=== PATIENT | male | born 1980 | race Caucasian/White ===

== ENCOUNTER 2020-01-26 13:30 | Emergency (ER) | payer BC ==
[~2020-01-26] VITALS: Ht 175.3 cm; Wt 81.6 kg
[2020-01-26 13:42] VITALS: BP 131/78
[2020-01-26] MEDS ORDERED: KETOROLAC TROMETHAMINE 15 MG/ML VIAL ONE (14:15)
--- NOTE | 2020-01-26 14:28 | NUR ---
PATIENT A/OX4, AMBULATORY WITH STEADY GAIT, BREATHING EVENA ND UNLABORED, NO SOB NOTED. Patient discharged to home in stable condition. Written and verbal after care instructions given. Patient verbalizes understanding of instruction.
[2020-01-26] MEDS ORDERED: KETOROLAC TROMETHAMINE INJ 30 MG/ML VIAL IM ONE (14:30)
== END 2020-01-26 14:30 | disposition home or self-care (01) ==
LOC: ER 13:30
DX: R50.9 Fever, unspecified (principal); R51.9 Headache, unspecified; Z20.828 Contact with and (suspected) exposure to other viral communicable diseases
CPT/HCPCS: J1885

== ENCOUNTER 2020-03-07 21:34 | Emergency (ER) | payer BC ==
[~2020-03-07] VITALS: Ht 175.3 cm; Wt 81.6 kg
--- NOTE | 2020-03-07 21:58 | NUR ---
PT CAME TO THE ER C/O MIDSTERNAL PRESSURE-LIKE CHEST PAIN SINCE 2099 TODAY +SOB +NAUSEA. PT AAOX4, VSS, RESPIRATIONS EVEN AND UNLABORED ON RA W/ NAD NOTED. 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 EKG AT BEDSIDE. IV LINE ESTABLISHED 18 G RAC. BLOOD COLLECTED AND SENT TO LAB
[2020-03-07] MEDS ORDERED: ONDANSETRON HCL/PF 4 MG/2 ML VIAL IVP ONE (22:00)
[2020-03-07] MEDS ORDERED: ONDANSETRON HCL/PF 4 MG/2 ML VIAL ONE (22:01)
--- NOTE | 2020-03-07 22:04 | NUR ---
DAWIT FLORENTINO AT BEDSIDE
[2020-03-07 22:09] LABS: BASOPHILS # (AUTO) 0.1 /CMM (0.0-0.2); HEMOGLOBIN 11.5 g/dL (13.5-17.5); MONOCYTES # (AUTO) 0.6 /CMM (0.1-1.30)
[2020-03-07 22:17] LABS: BASOPHILS % (AUTO) 1.2 % (0.0-2.0); CARBON DIOXIDE 27 mmol/L (21-32); CHLORIDE 105 mmol/L (98-107); EOSINOPHILS % (AUTO) 10.1 % (0.0-6.0); GLUCOSE 118 mg/dL (74-106); HEMATOCRIT 36 % (39-51); LYMPHOCYTES % (AUTO) 24.5 % (20.0-44.0); MEAN CORPUSCULAR HGB CONC 32 g/dl (31.0-36.0); MEAN CORPUSCULAR VOLUME 61 fL (80-96); NEUTROPHILS # (AUTO) 4.6 /CMM (1.8-8.9); NEUTROPHILS % (AUTO) 57.2 % (43.0-81.0); POTASSIUM 3.5 mmol/L (3.5-5.1); SODIUM SERUM 140 mmol/L (136-145); UREA NITROGEN, BLOOD 19 mg/dL (7-18)
[2020-03-07 22:19] LABS: CALCIUM, SERUM 8.9 mg/dL (8.5-10.1)
--- NOTE | 2020-03-07 23:25 | NUR ---
PT'S MOM AZEEM
[2020-03-07 23:30] LABS: EOSINOPHILS % (MANUAL) 7 % (0-4); LYMPHOCYTES % (MANUAL) 28 % (16-48); MONOCYTES % (MANUAL) 8 % (0-11.0); NEUTROPHILS % (MANUAL) 57 (42-76)
[2020-03-07 23:31] LABS: PLATELET COUNT (AUTO) 173 /CMM (150-450)
--- NOTE | 2020-03-08 02:23 | NUR ---
Patient discharged to home in stable condition. Written and verbal after care instructions given. Patient verbalizes understanding of instruction.IV removed. Catheter intact and site benign. Pressure and 4x4 applied to site. No bleeding noted.
[2020-03-08 02:24] VITALS: BP 119/71
== END 2020-03-08 02:25 | disposition home or self-care (01) ==
LOC: ER 21:35
DX: R07.89 Other chest pain (principal); I49.3 Ventricular premature depolarization
CPT/HCPCS: 36415 ×2; 71045; 80048; 83735; 84484 ×2; 85007; 85025; 93005 ×3; 96374; 99285; J2405